=== PATIENT | female | born 1965 | race Caucasian/White ===

== ENCOUNTER 2023-06-06 06:58 | Day surgery (SDC) | payer OTHER ==
[~2023-06-06] VITALS: Ht 152.4 cm; Wt 69.4 kg
[2023-06-06] MEDS: fentaNYL citrate 0.05 MG/ML VIAL IVP ONE (09:56)
[2023-06-06] MEDS ORDERED: fentaNYL citrate 0.05 MG/ML VIAL ONE (09:58)
[2023-06-06] MEDS: LIDOCAINE 2% 100 MG/5 ML UJET TP ONE (10:06)
== END 2023-06-06 10:55 | disposition home or self-care (01) ==
LOC: MOR 06:58 → MMU 07:01 → MOR 10:55
PROVIDERS: ATTEND Internal Medicine Gastroenterology
DX: Z12.11 Encounter for screening for malignant neoplasm of colon (principal); K57.30 Diverticulosis of large intestine without perforation or abscess without bleeding; K64.9 Unspecified hemorrhoids
CPT/HCPCS: 45378; J3010